=== PATIENT | female | born 2000 | race African-American/Black ===

== ENCOUNTER 2022-07-15 20:46 | Emergency (ER) | payer MEDICAID ==
[~2022-07-15] VITALS: Ht 170.2 cm; Wt 59.0 kg
[2022-07-15 21:01] VITALS: BP 131/79
== END 2022-07-15 22:06 | disposition left against medical advice (07) ==
LOC: ER 20:46
DX: Z53.21 Procedure and treatment not carried out due to patient leaving prior to being seen by health care provider (principal)